=== PATIENT | male | born 1955 | race Caucasian/White ===

== ENCOUNTER → 2018-05-18 | Outpatient (CLI) | payer BC, MEDICARE ==
[2018-05-17 10:38] VITALS: BMI 31.1
[2018-05-18 12:51] VITALS: BP 166/93; PULSE 92; RESP 16
--- NOTE | 2018-05-18 13:24 | P.CONS ---
History of Present Illness - Reason for Consult Consult date: 05/18/18 - Chief Complaint Lower back and bilateral leg pain - History of Present Illness This is a pleasant 62-year-old gentleman with history of lower back pain that improved after lumbar laminectomy that was done a few years ago however for the last couple of years his pain has been getting worse. His pain was she starts in his buttock area bilaterally and goes down to the mid calves more on the right side than the left side. The patient denies any bowel or bladder dysfunction or any weakness in the lower extremities he also denies any weight loss recently. This pain occasionally wakes him up at night. The pain is worse when he stands for more than 15 minutes. His pain is mostly in the back of his legs. The patient tried chiropractor and physical therapy previously. Review of Systems Respiratory: Denies cough Musculoskeletal: Reports as per HPI Integumentary: Denies pruritus, Denies rash Neurological: Reports as per HPI Psychiatric: Denies anxiety, Denies depression Past Medical History Past Medical History: Hyperlipidemia, Hypertension Additional Past Medical History / Comment(s): back pain,"prediabetes", diverituculitis History of Any Multi-Drug Resistant Organisms: None Reported Past Surgical History: Back Surgery, Bowel Resection, Hernia Repair Additional Past Surgical History / Comment(s): laminectomy Past Anesthesia/Blood Transfusion Reactions: No Reported Reaction Additional Past Anesthesia/Blood Transfusion Reaction / Comm: no hx blood transfusuion Past Psychological History: No Psychological Hx Reported Smoking Status: Former smoker Past Alcohol Use History: Occasional Additional Past Alcohol Use History / Comment(s): quit smoking approx 40 yrs ago ,smoked approx 5yrs <1ppd Past Drug Use History: None Reported - Past Family History Mother Family Medical History: No Reported History Medications and Allergies Home Medications Medication Instructions Recorded Confirmed Type Aspirin 81 mg PO DAILY 05/17/18 05/18/18 History Gabapentin [Neurontin] 100 mg PO TID 05/17/18 05/18/18 History Nabumetone [Relafen] 750 mg PO BID PRN 05/17/18 05/18/18 History Olmesartan/Hydrochlorothiazide 1 each PO DAILY 05/17/18 05/18/18 History [Olmesartan-Hctz 20-12.5 mg Tab] Simvastatin [Zocor] 20 mg PO DAILY 05/17/18 05/18/18 History metFORMIN HCL 1,000 mg PO BID 05/17/18 05/18/18 History Allergies Allergy/AdvReac Type Severity Reaction Status Date / Time No Known Allergies Allergy Verified 05/18/18 12:38 Physical Exam Vitals: Vital Signs Pulse Resp BP Pulse Ox 05/18/18 12:39 92 16 166/93 96 - EENT Eyes: PERRLA - Respiratory Respiratory: bilateral: CTA - Cardiovascular Rhythm: regular - Neurologic Neuro exam of the lower extremities showed normal and symmetrical muscle strength, decreased knee reflexes symmetrically and absent ankle reflexes bilaterally. He has small incision on the lumbar area from his previous laminectomy. He has mild tenderness in the upper buttock area bilaterally. No sacroiliac joint tenderness. Straight leg raising test negative bilaterally. Neurologic: CNII-XII intact Results Results: Lumbar spine MRI showed mild to moderate neural foraminal stenosis at the L3 4 level and disc bulging at the L5-S1 level with right paracentral disc protrusion and 5 mm caudal migration approximating the right traversing nerve root. Assessment and Plan Plan: This is a 62-year-old gentleman with two-year history of lower back pain with radiation to the lower extremities with more pain in the lower extremities than his back. The patient and lumbar laminectomy 4 years ago. He failed to respond to chiropractor and physical therapy previously. At this point I recommend that he goes up on his Neurontin dose to 600 mg daily. I will also schedule him to have epidural steroid injection either in the lumbar or caudal approach depending on the position of his incision and I will tendency to try to avoid going through his previous scar tissue into the epidural space to avoid having any epidural puncture. The procedure was explained to the patient and his questions were answered. Of note he is diagnosed as prediabetic and he is on metformin orally. He denies taking any anticoagulants. PQRS measures: 1-Patient's medications are documented in the chart. 2-Tobacco use is negative, counseling given 3-Patient has had a pneumococcal vaccine. 4-Advanced care planning discussed, patient unable to give 5-Opioid contract signed with the patient. 6-Pain positive, follow-up visit or procedure scheduled 7-Patient's blood pressure measured and documented as hypertensive, the patient will follow up with his primary care physician. 8-Patient's weight was measured, and body mass index ABOVE the normal limits, and counseling was done. Patient instructed to follow up with PCP. 9-Patient WAS NOT identified as an unhealthy alcohol user. I thank you for the consultation
== END | disposition home or self-care (01) ==
LOC: PNWHC3 12:33
PROVIDERS: ATTEND Anesthesiology
DX: M48.061 Spinal stenosis, lumbar region without neurogenic claudication (principal); M51.26 Other intervertebral disc displacement, lumbar region; E78.5 Hyperlipidemia, unspecified; I10 Essential (primary) hypertension; R73.03 Prediabetes; Z87.891 Personal history of nicotine dependence; Z79.82 Long term (current) use of aspirin; Z79.899 Other long term (current) drug therapy; Z98.890 Other specified postprocedural states
CPT/HCPCS: 99211

== ENCOUNTER 2018-05-24 09:24 | Day surgery (SDC) | payer MEDICARE, BC, OTHER ==
[2018-05-22 11:19] VITALS: BMI 31.1
[~2018-05-24 09:24] MED LIST: SODIUM CHLORIDE 0.9% 500 ML 500 ML IV SCH
[2018-05-24 09:56] VITALS: RESP 18; TEMP 97.8
[2018-05-24] MEDS ORDERED: LACTATED RINGERS 1,000 ML IV ONE ×3 (10:06→11:37)
[2018-05-24] MEDS ORDERED: LIDOCAINE 1% 20 ML VIAL (10MG/ML) FOR IV START INTRADERMA ONE (10:06)
[2018-05-24 10:10] LABS: Glucose,Whole Blood 119 mg/dL (75-99)
[2018-05-24 11:53] VITALS: BP 141/75; PULSE 78
--- NOTE | 2018-05-24 12:16 | FL ---
EXAMINATION TYPE: FL guided pain mgmt statistic DATE OF EXAM: 05/24/2018 CLINICAL HISTORY: Back and sacral pain. TECHNIQUE: Fluoroscopy. COMPARISON: None. FINDINGS: Fluoroscopic guidance was provided during pain relief procedure performed by Dr. Lau . A total of 10 seconds of fluoroscopic time was utilized during the procedure and two spot images a re acquired. Images acquired shows needle localization at level of the lower sacrum. IMPRESSION: As Above.
--- NOTE | 2018-05-24 15:44 | P.PCN ---
Date of Procedure: 05/24/18 Procedure(s) Performed: PREOPERATIVE DIAGNOSIS: Lumbar post laminectomy syndrome. POSTOPERATIVE DIAGNOSIS: Lumbar post laminectomy syndrome. PROCEDURE: 1. Caudal epidural steroid injection under fluoroscopic guidance. 2. Caudal epidurogra ANESTHESIA: Local with 1% lidocaine; 5ml for subcutaneous infiltrations and IV versed 4 mg ,and fentanyl 100 mcg EBL: None. PROCEDURE INDICATION: The patient with neuropathic pain radiating distally returns for caudal epidural steroid injection. PROCEDURE DESCRIPTION: The patient was seen and identified in the preoperative area. Risks, benefits, complications, and alternatives were discussed with the patient. The patient agreed to proceed with the procedure and signed the consent. IV was started, and vital signs were stable. Patient was taken to the OR and time out was completed. The patient was placed in the prone position on procedure table and a pillow was placed under the abdomen to reduce lumbar lordosis. The lumbosacral area was prepped and draped in the usual sterile fashion. Critical pause was taken. Vital signs were closely monitored during the procedure. Using lateral fluoroscopy the anterior-posterior plates of the sacrum were identified and the skin and deeper tissues corresponding into sacrococcygeal ligament were anesthetized using approximately 3 mL of 1% lidocaine. Then under fluoroscopy, a 3-1/2-inch 20-gauge Tuohy epidural needle was guided through the sacrococcygeal ligament, and into the epidural space. After negative aspiration , a 2 mL of omnipaque-180 contrast dye was injected with excellent epidurogram. Again after negative aspiration for CSF, blood, and with no paresthesias, Depo-Medrol 80mg, 2ml of 1% preservative free Lidocaine with 6 ml of preservative free normal saline(total of 10ml)solution was injected with washout of epidurogram. Needle was withdrawn intact. Skin was cleansed, and bandage was applied. COMPLICATIONS: None DISPOSITION / PLANS: The patient was placed in a supine position and transferred to the recovery area in a stable condition for observation and was discharged from the recovery room after meeting discharge criteria. Home discharge instructions given to the patient by the staff. The patient was reexamined prior to discharge. The patient will schedule a follow up in the clinic in 2-4 weeks.
== END 2018-05-24 12:07 | disposition home or self-care (01) ==
LOC: ORPAIN 09:24
PROVIDERS: ATTEND Specialist
DX: M96.1 Postlaminectomy syndrome, not elsewhere classified (principal)
CPT/HCPCS: 62323; J2250; J1030; J3010; 99152

== ENCOUNTER 2018-06-20 08:38 | Day surgery (SDC) | payer MEDICARE, OTHER ==
[2018-06-13 11:48] VITALS: BMI 30.5
[2018-06-20 09:09] VITALS: RESP 16; TEMP 97.3
--- NOTE | 2018-06-20 09:17 | P.PCN ---
Date of Procedure: 06/20/18 Operative Findings: PREOPERATIVE DIAGNOSIS: Lumbar post laminectomy syndrome. POSTOPERATIVE DIAGNOSIS: Lumbar post laminectomy syndrome. PROCEDURE: 1. Caudal epidural steroid injection under fluoroscopic guidance. 2. Caudal epidurogram ANESTHESIA: Local with 1% lidocaine; 5ml for subcutaneous infiltration EBL: None. PROCEDURE INDICATION: The patient with neuropathic pain radiating distally returns for caudal epidural steroid injection. PROCEDURE DESCRIPTION: The patient was seen and identified in the preoperative area. Risks, benefits, complications, and alternatives were discussed with the patient. The patient agreed to proceed with the procedure and signed the consent. IV was started, and vital signs were stable. Patient was taken to the OR and time out was completed. The patient was placed in the prone position on procedure table and a pillow was placed under the abdomen to reduce lumbar lordosis. The lumbosacral area was prepped and draped in the usual sterile fashion. Critical pause was taken. Vital signs were closely monitored during the procedure. Using lateral fluoroscopy the anterior-posterior plates of the sacrum were identified and the skin and deeper tissues corresponding into sacrococcygeal ligament were anesthetized using approximately 3 mL of 1% lidocaine. Then under fluoroscopy, 1.5 inch-inch 25-gauge needle was guided through the sacrococcygeal ligament, and into the epidural space. After negative aspiration, a 2 mL of omnipaque-180 contrast dye was injected with excellent epidurogram. Again after negative aspiration for CSF, blood, and with no paresthesias, Kenalog 40mg, 2ml of 1% preservative free Lidocaine with 6 ml of preservative free normal saline(total of 10ml)solution was injected with washout of epidurogram. Needle was withdrawn intact. Skin was cleansed, and bandage was applied. COMPLICATIONS: None DISPOSITION / PLANS: The patient was placed in a supine position and transferred to the recovery area in a stable condition for observation and was discharged from the recovery room after meeting discharge criteria. Home discharge instructions given to the patient by the staff. The patient was reexamined prior to discharge. The patient will schedule a follow up in the clinic in 2-4 weeks and we will given a prescription for physical therapy and reevaluate he needs a third epidural
[2018-06-20 09:38] VITALS: BP 155/88; PULSE 77
--- NOTE | 2018-06-20 09:43 | FL ---
EXAMINATION TYPE: FL guided pain mgmt statistic DATE OF EXAM: 06/20/2018 HISTORY: Flouroscopy time 4 seconds of fluoroscopy provided. IMPRESSION: 1. Fluoroscopy time.
== END 2018-06-20 09:51 | disposition home or self-care (01) ==
LOC: ORPAIN 08:38
PROVIDERS: ATTEND Hospitalist
DX: M96.1 Postlaminectomy syndrome, not elsewhere classified (principal)
CPT/HCPCS: 62323; J3301; Q9966

== ENCOUNTER → 2018-07-05 | Outpatient (CLI) | payer MEDICARE, OTHER ==
--- NOTE | 2018-07-05 14:37 | P.PN ---
Subjective Progress Note Date: 07/05/18 Loren 63-year-old gentleman who presents today for follow-up. He is status post 2 caudal epidural steroid injections. He reports that his left leg pain is about 99% improved. His right leg is about 35% improved. He reports he continues to have some burning and the inside of his right knee, numbness and tingling and pain going down his right leg to right below the knee. He reports he has some back pain but is able tolerate that. In the morning he is pain is better than it is in the evening. He is concerned is going on a cruise in the summer wants to be able to participate. He is very happy with her injections thus far and is interested in having some more improvement in his right side. He is trying to avoid having any's more surgical interventions. At this point is not using any medications. He has been in physical therapy in the past and is interested in going back. Objective - Vital Signs Vital signs: Intake & Output 07/04/18 07/05/18 07/05/18 18:59 06:59 18:59 Weight 99.79 kg - Exam General: Awake and alert oriented 3 no distress Respiratory exam: No audible wheezing no accessory muscle usage Cardiovascular exam: regular rate, palpable bilateral pulses, no lower extremity edema Abdominal exam: No distention nontender to palpation Cervical spine: Normal alignment, Spurling's negative, facet loading negative Lumbar spine: Loss of lumbar lordosis, normal alignment, tender to palpation over bilateral paraspinal muscles, straight leg raise is positive on the right at about 40. Sacroiliac joints: Nontender to palpation, GIDEON is negative, Gaenselon negative Neuro exam: Normal sensation in bilateral upper extremities, deep tendon reflexes are 2+ bilateral upper extremities. Normal sensation in bilateral lower extremities. Deep tendon reflexes are 1+ bilateral Psych exam: Cooperative, appropriate mood Assessment and Plan Assessment: #1 lumbar postlaminectomy syndrome #2 lumbar radiculopathy Plan: After long discussion with the patient and review of symptoms and examination. I believe we should trial a right-sided L3 4 and L4 5 transforaminal epidural steroid injection. We discussed how to perform this procedure as well as the risks benefits. We did discuss that the injections may not be beneficial and are not guaranteed to improve his symptoms but I believe are worth the effort given his relief from the caudal epidurals. He is very interested in proceeding we'll move forward the next week. I also given a prescription for physical the rapy today.
== END ==
LOC: PNWHC3 13:18
PROVIDERS: ATTEND Hospitalist
DX: M54.16 Radiculopathy, lumbar region (principal); M96.1 Postlaminectomy syndrome, not elsewhere classified; Z79.891 Long term (current) use of opiate analgesic
CPT/HCPCS: 99211

== ENCOUNTER 2018-08-01 08:23 | Day surgery (SDC) | payer MEDICARE, BC, OTHER ==
[2018-07-28 10:51] VITALS: BMI 30.1
[~2018-08-01 08:23] MED LIST changes: +LACTATED RINGERS 1,000 ML IV SCH; -SODIUM CHLORIDE 0.9% 500 ML 500 ML IV SCH
[2018-08-01 08:37] VITALS: TEMP 96.9
[2018-08-01 08:43] LABS: Glucose,Whole Blood 112 mg/dL (75-99)
--- NOTE | 2018-08-01 09:03 | P.PCN ---
Date of Procedure: 08/01/18 Procedure(s) Performed: PREOPERATIVE DIAGNOSIS: Lumbar radiculopathy in right L3-4 , L4-5 distribution. 2-failed back surgery syndrome lumbar area POSTOPERATIVE DIAGNOSIS: Lumbar radiculopathy in right L34, L45 distribution. 2-failed back surgery syndrome lumbar area PROCEDURE 1. Transforaminal epidural steroid injection under fluoroscopic guidance at right L3-4 , L4-5 level. 2. Lumbar epidurogram : ANESTHESIA: Local with 1% lidocaine 4 ml only ( No IV Sedations ) EBL: Minimal PROCEDURE INDICATION: The patient with low back pain and radiculopathy symptoms unresponsive to conservative treatment. PROCEDURE DESCRIPTION / TECHNIQUE: The patient was seen and identified in the preoperative area. Risks, benefits, complications, and alternatives were discussed with the patient. The patient agreed to proceed with the procedure and signed the consent. IV was started, and vital signs were stable. Patient was taken to the OR and time out was completed. The patient was placed in the prone position on procedure table and a pillow was placed under the abdomen to reduce lumbar lordosis. The lumbosacral area was prepped and draped in the usual sterile fashion. Critical pause was taken. Vital signs were closely monitored during the procedure. Using oblique fluoroscopy, the chin of the ``Russell dog at right L34 level was identified, and the skin and deeper tissues just below was localized with 1% lidocaine. Subsequently, a 22-gauge 3.5-inch spinal needle was advanced under a tunneled view fluoroscopic guidance just underneath the chin of the ``Russell dog at the right L3-4 . Under lateral fluoroscopy, the needle was then advanced to the posterior border of the Right L3-4 interforaminal space. After negative aspiration of CSF and blood and with no paresthesias, 1 mL Isovue 200 contrast dye was injected excellent epidurogram and outlining of the Right nerve root Subsequently, 2mL of block solution containing 20 mg Depo-Medrol and 2 mL of Lidocaine 1% was injected. Needle was removed and the same procedure was repeated at the right L4-5. At the end of the procedure, skin was cleansed, and bandages were applied. COMPLICATIONS:none DISPOSITION / PLANS: The patient was placed in a supine position and transferred to the recovery area in a stable condition for observation. There was no evidence of lower extremity motor or sensory deficit after the procedure. Patient was discharged from the recovery room after meeting discharge criteria. Home discharge instructions were given to the patient by the staff. The patient was reexamined prior to discharge.
[2018-08-01 09:10] VITALS: BP 133/75; PULSE 72; RESP 16
--- NOTE | 2018-08-01 10:30 | FL ---
EXAMINATION TYPE: FL guided pain mgmt statistic DATE OF EXAM: 08/01/2018 CLINICAL HISTORY: Back pain. TECHNIQUE: Fluoroscopy. COMPARISON: None. FINDINGS: Fluoroscopic guidance was provided during pain relief procedure performed by Dr. Lau . A total of 7 seconds of fluoroscopic time was utilized during the procedure and 1 spot images are acquired. Images acquired shows needle localization at multiple lumbar vertebral levels. IMPRESSION: As Above.
== END 2018-08-01 09:20 | disposition home or self-care (01) ==
LOC: ORPAIN 08:23
PROVIDERS: ATTEND Specialist
DX: M96.1 Postlaminectomy syndrome, not elsewhere classified (principal)
CPT/HCPCS: 64483; 64484; J1030; Q9966

== ENCOUNTER → 2018-08-17 | Outpatient (CLI) | payer MEDICARE, OTHER ==
[2018-08-17 11:42] VITALS: BP 158/85; PULSE 88; RESP 18
--- NOTE | 2018-08-17 14:58 | P.PN ---
Subjective Progress Note Date: 08/17/18 And this is for visit for this 63 years old male with a history of chronic low back pain with radiation to the lower extremities diagnosed with failed back surgery syndrome and lumbar area, and lumbar radiculopathy, recently we have done on the right side transforaminal epidural steroid injection at L3 4 and 45, patient reported that his pain improved significantly currently is able to ambulate without difficulty and he had minimal pain which is controlled with the Neurontin 100 mg He denies any side effect of the medication ,and he got prescription for the medication from his primary care Objective - Vital Signs Vital signs: Vital Signs Temp Pulse 88 08/17/18 11:30 Resp 18 08/17/18 11:30 BP 158/85 08/17/18 11:30 Pulse Ox 98 08/17/18 11:30 Intake & Output 08/16/18 08/17/18 08/17/18 18:59 06:59 18:59 Weight 100.698 kg - Exam Physical Examinations : -Constitutiona : Cooperative , not in acute distress . -HEENT : nech ; supple , no Lymphadenopathy , normal thyroid size . eyes : no ptosis , no icterus, no photophobia . - neurologic : Cranial nerve II to XII intact , no focal neurological deffecit . -psychatric : alert , oriented X 3 , appropriate affect , intact judgment and insight . -Lymphatic : no Lymphadenopathy . - musculoskeltal : Lumber spine moter stegnth lower extremities ,thigh and legs 5/5 Right side , 5/5 Left side Assessment and Plan Plan: Assessment and plan= lumbar radiculopathy , failed back surgery syndrome and lumbar area Pain improved after transforaminal epidural steroid injection Recommend continue Neurontin (he is getting prescription refills from his primary care ) Patient will follow up with the pain clinic when necessary. - PQRS measures = - Patient's medications are documented in the chart. -Tobacco use is negative and counseling.Given. -Patient's has not received pneumococcal vaccine. -Advanced care planning discussed, patient not eligible. -Opiate contract signed. -Pain positive and follow-up visit when necessary -Patient's blood pressure measured [ 158/85 ] , and documented in the record ,and patient will follow up with the primary care. -Patient's weight was measured and body mass index [ 30.0 ] above the,normal limits and counseling was done. and patient instructed to follow-up with the primary care physician. -Patient was not identified as an unhealthy alcohol user Time with Patient: Less than 30
== END ==
LOC: PNWHC3 11:23
PROVIDERS: ATTEND Specialist
DX: M54.16 Radiculopathy, lumbar region (principal); M96.1 Postlaminectomy syndrome, not elsewhere classified; Z79.899 Other long term (current) drug therapy
CPT/HCPCS: 99211